=== PATIENT | female | born 2000 | race Caucasian/White ===

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

== ENCOUNTER 2023-11-29 15:47 | Outpatient (CLI) | payer BC, SELFPAY ==
--- NOTE | ~2023-11-29 | XR_ITS ---
EXAMINATION: XR lumbar spine 2-3V DATE: 11/29/2023 16:08 INDICATION: Low back pain. TECHNIQUE: 3 views of lumbar spine were obtained. COMPARISON: None. FINDINGS: Bone alignment is normal. Vertebral body heights are normal. Intervertebral disc heights ar e normal. There is multilevel mild facet joint osteoarthritis. There is an intrauterine device in exp ected position. IMPRESSION: 1. Mild lumbar facet joint osteoarthritis. Reviewed, dictated and finalized at location E.
--- NOTE | ~2023-11-29 | XR_ITS ---
XR hip LT min 2V 11/29/2023 16:08 INDICATION: Left hip pain for 2 years PROCEDURE: 2 views left hip COMPARISON: No prior studies for comparison. FINDINGS: Fracture, dislocation or subluxation is not identified. The soft tissues appear within norm al limits. No foreign bodies are identified. IMPRESSION: 1: NO ACUTE BONE OR JOINT ABNORMALITY IDENTIFIED. Reviewed, dictated and finalized at location B.
== END 2023-11-29 15:48 | disposition home or self-care (01) ==
PROVIDERS: PCP Family Medicine; Visit Provider Family Medicine
DX: M47.896 Other spondylosis, lumbar region (principal); M25.552 Pain in left hip
CPT/HCPCS: 72100; 73502